=== PATIENT | female | born 2000 | race Caucasian/White ===

== ENCOUNTER 2019-09-02 17:29 | Emergency (ER) | payer MEDICAID ==
[~2019-09-02] VITALS: Ht 170.2 cm; Wt 59.4 kg
[2019-09-02 18:32] LABS: CULTURE INDICATED? YES; MICROSCOPIC INDICATED
--- NOTE | 2019-09-02 18:35 | NUR ---
RHIT: PT TO ROOM FROM CRISTINA LERNER
--- NOTE | 2019-09-02 18:40 | NUR ---
called L/D. to come after shift change and check fhr. ua sent while in waiit room. results pending. as
--- NOTE | 2019-09-02 19:04 | NUR ---
l/d was in room. as
[2019-09-02 19:45] VITALS: BP 98/58
[2019-09-02] MEDS ORDERED: CEFTRIAXONE 1,000 MG ONE (20:18)
[2019-09-02] MEDS ORDERED: CEFTRIAXONE 1,000 MG IM ONE ×2 (20:30)
== END 2019-09-02 20:36 | disposition home or self-care (01) ==
LOC: ED 20:00
DX: O23.12 Infections of bladder in pregnancy, second trimester (principal); Z3A.17 17 weeks gestation of pregnancy
CPT/HCPCS: 81001; 87077; 87086; 96372; 99283; J0696; 87186

== ENCOUNTER 2020-02-11 21:11 | Inpatient (IN) | payer MEDICAID ==
[~2020-02-11] VITALS: Ht 170.2 cm; Wt 68.6 kg
[2020-02-11] MEDS ORDERED: D5%-LACTATED RINGERS 1,000 ML IV SCH (22:30)
[2020-02-11] MEDS ORDERED: TERBUTALINE 1 MG/ML, 1ML SQ PRN (22:30)
[2020-02-11] MEDS ORDERED: ONDANSETRON 2MG/ML, 2ML IVPush PRN (22:30)
[2020-02-11] MEDS ORDERED: TERBUTALINE 1 MG/ML, 1ML IVPush PRN (22:30)
[2020-02-11] MEDS ORDERED: CALCIUM CARBONATE 500 MG TAB.CHEW PO PRN (22:30)
[2020-02-11] MEDS ORDERED: OXYTOCIN 30U/ 0.9% NaCL 500ML 500 ML IV ONE (22:30)
[2020-02-11] MEDS ORDERED: LACTATED RINGERS 1,000 ML IV SCH (22:30)
[2020-02-11 22:53] LABS: BASOPHILS % (AUTO) 1 % (0-1); EOSINOPHILS % (AUTO) 0 % (1-7); LYMPHOCYTES % (AUTO) 17 % (22-44); MEAN CORPUSCULAR HEMOGLOBIN 28.7 pg (27.0-34.8); MEAN CORPUSCULAR HGB CONC 32.9 g/dL (32.4-35.8); MEAN PLATELET VOLUME 7.7 fL (7.4-10.4); MONOCYTES % (AUTO) 5 % (2-9); NEUTROPHILS % (AUTO) 77 % (42-75); PLATELET COUNT 253 x10^3/uL (130-400); RED BLOOD COUNT 5.05 x10^6/uL (3.82-5.3); RED CELL DISTRIBUTION WIDTH 13.7 % (9.6-15.2)
[2020-02-11 23:44] LABS: MD SCAN
[2020-02-11] MEDS ORDERED: FENTANYL/BUPIV./NS/PF 250 ML EPIDCONT ONE (23:48)
[2020-02-11] MEDS ORDERED: BUPIVACAINE 0.25% ONE (23:48)
[2020-02-12] MEDS ORDERED: LACTATED RINGERS 1,000 ML IV SCH (00:30)
[2020-02-12] MEDS ORDERED: LACTATED RINGERS 1,000 ML IVBOLUS PRN (00:30)
[2020-02-12] MEDS ORDERED: FENTANYL/BUPIV./NS/PF 250 ML EPIDCONT SCH (00:30)
[2020-02-12] MEDS ORDERED: EPHEDRINE 50 MG/ML, 1ML IVPush PRN (00:30)
[2020-02-12] MEDS ORDERED: BUPIVACAINE 0.25% ONE (00:34)
[2020-02-12] MEDS ORDERED: LIDOCAINE 1%, 20ML ONE (00:47)
[2020-02-12] MEDS ORDERED: NEWBORN KIT ONE (00:47)
[2020-02-12] MEDS ORDERED: OXYTOCIN 30U/ 0.9% NaCL 500ML 500 ML ONE ×2 (00:48→09:28)
[2020-02-12] MEDS ORDERED: MISOPROSTOL 200 MCG TABLET ONE (00:48)
[2020-02-12] MEDS ORDERED: METHYLERGONOVINE 0.2 MG/ML IM PRN ×2 (06:30→08:00)
[2020-02-12] MEDS ORDERED: METHYLERGONOVINE 0.2 MG/ML IM ONE (06:32)
[2020-02-12] MEDS ORDERED: ACETAMINOPHEN 325 MG TABLET PO PRN (08:00)
[2020-02-12] MEDS ORDERED: BISACODYL 10 MG SUPP PR PRN (08:00)
[2020-02-12] MEDS ORDERED: ONDANSETRON 2MG/ML, 2ML IV PRN (08:00)
[2020-02-12] MEDS ORDERED: MISOPROSTOL 200 MCG TABLET PR PRN (08:00)
[2020-02-12] MEDS ORDERED: SIMETHICONE 80 MG CHEW TAB PO PRN (08:00)
[2020-02-12] MEDS ORDERED: HYDROcodone/APAP 5/325 TABLET PO PRN ×2 (08:00)
[2020-02-12] MEDS: OXYTOCIN 30U/ 0.9% NaCL 500ML 500 ML IV SCH ×2 (09:50→18:00)
[2020-02-12 10:05] VITALS: BP 119/74
[2020-02-12] MEDS: PRENATAL VIT/IRON/FA 1 EACH TABLET PO SCH (10:48)
[2020-02-12] MEDS: IBUPROFEN 600 MG TABLET PO PRN ×3 (10:48→23:06)
[2020-02-12] MEDS: DOCUSATE 100 MG CAPSULE PO PRN (10:48)
[2020-02-12 14:30] VITALS: BP 106/68
[2020-02-12 14:49] LABS: BASOPHILS % (AUTO) 0 % (0-1); EOSINOPHILS % (AUTO) 1 % (1-7); LYMPHOCYTES % (AUTO) 13 % (22-44); MEAN CORPUSCULAR HEMOGLOBIN 28.4 pg (27.0-34.8); MEAN CORPUSCULAR HGB CONC 32.6 g/dL (32.4-35.8); MEAN PLATELET VOLUME 7.7 fL (7.4-10.4); MONOCYTES % (AUTO) 5 % (2-9); NEUTROPHILS % (AUTO) 82 % (42-75); PLATELET COUNT 228 x10^3/uL (130-400); RED BLOOD COUNT 4.64 x10^6/uL (3.82-5.3); RED CELL DISTRIBUTION WIDTH 13.6 % (9.6-15.2)
[2020-02-12 14:51] LABS: MD NO
[2020-02-12 20:00] VITALS: BP 100/66
[2020-02-13 02:00] VITALS: BP 101/57
[2020-02-13] MEDS: OXYTOCIN 30U/ 0.9% NaCL 500ML 500 ML IV SCH ×2 (04:00→14:00)
[2020-02-13 07:45] VITALS: BP 118/72
[2020-02-13] MEDS: PRENATAL VIT/IRON/FA 1 EACH TABLET PO SCH (08:48)
[2020-02-13] MEDS: DOCUSATE 100 MG CAPSULE PO PRN (08:48)
[2020-02-13] MEDS: IBUPROFEN 600 MG TABLET PO PRN (08:48)
[2020-02-13] MEDS ORDERED: IBUP-1222 PO (13:14)
[2020-02-13] MEDS ORDERED: DIPH,PERTUSS(ACELL),TET VAC/PF NC IM-VACC ONE (14:30)
== END 2020-02-13 15:15 | disposition home or self-care (01) | DRG 560 ==
LOC: LDOP 21:11 → LDIP 21:42 → 2NW 02-12 10:01
PROVIDERS: ADMIT Obstetrics & Gynecology; ATTEND Obstetrics & Gynecology
PROC: 10E0XZZ Delivery of Products of Conception, External Approach (ICD-10-PCS; principal; 2020-02-12)
PROC: 10907ZC Drainage of Amniotic Fluid, Therapeutic from Products of Conception, Via Natural or Artificial Opening (ICD-10-PCS; 2020-02-12)
PROC: 10H07YZ Insertion of Other Device into Products of Conception, Via Natural or Artificial Opening (ICD-10-PCS; 2020-02-12)
PROC: 0UQMXZZ Repair Vulva, External Approach (ICD-10-PCS; 2020-02-12)
PROC: 3E0R3BZ Introduction of Anesthetic Agent into Spinal Canal, Percutaneous Approach (ICD-10-PCS; 2020-02-12)
PROC: 00HU33Z Insertion of Infusion Device into Spinal Canal, Percutaneous Approach (ICD-10-PCS; 2020-02-12)
DX: O77.0 Labor and delivery complicated by meconium in amniotic fluid (principal); O71.82 Other specified trauma to perineum and vulva; Z37.0 Single live birth; Z3A.40 40 weeks gestation of pregnancy; Z88.1 Allergy status to other antibiotic agents; Z88.8 Allergy status to other drugs, medicaments and biological substances
CPT/HCPCS: 36415; 85025; 86592; 86900; 87635; G0378; J2210; J2590; J7120